=== PATIENT | female | born 1960 | race Caucasian/White ===

== ENCOUNTER 2017-06-16 15:43 | Emergency (ER) | payer MEDICARE ==
--- NOTE | 2017-06-16 16:11 | ERPHSYRPT ---
- History of Present Illness Time Seen by Provider: 06/16/17 16:09 Source: patient Exam Limitations: no limitations Patient Subjective Stated Complaint: pt states she was wearing platform shoes thursday when she tripped over a rock injuring her left foot. reports severe pain today with some swelling. Triage Nursing Assessment: pt is aox3, pupils perrl, resps easy and non labored , pedal pulses strong and equal bilat. brusing noted to the dorsal left foot, rom limited upon exam due to pain. sensation intact to bilat lower extrem. cap refill < 3 sec. pain with ambulation and weight bearing. Physician History: mild to mod positional ache pain of the left foot since trip and fall last Thursday, no bleeding, no other injury, pt refused pain med Allergies/Adverse Reactions: allopurinol Allergy (Verified 03/22/16 04:46) azithromycin [From Zithromax] Allergy (Verified 03/22/16 04:46) Sulfa (Sulfonamide Antibiotics) [Sulfa(Sulfonamide Antibiotics)] Allergy ( Verified 03/22/16 04:46) tuberculin, purified protein deriva [Tuberculin,Purif.Prot.Deriv.] Allergy ( Verified 03/22/16 04:46) Home Medications: Aspirin 81 mg PO HS 11/13/13 [History] Insulin Glargine,Hum.rec.anlog [Lantus] 30 unit SQ BID 11/13/13 [History] Hx Tetanus, Diphtheria Vaccination/Date Given: No Hx Influenza Vaccination/Date Given: No Hx Pneumococcal Vaccination/Date Given: No Immunizations Up to Date: Yes - Review of Systems Musculoskeletal: Fall, No Back Pain, No Neck Pain Skin: No Symptoms Neurological: No Dizziness - Past Medical History Pertinent Past Medical History: Yes Neurological History: Migraines, Peripheral Neuropathy ENT History: No Pertinent History Cardiac History: High Cholesterol, Hypertension Respiratory History: No Pertinent History Endocrine Medical History: Diabetes Type II Musculoskeletal History: Degenerative Disk Disease GI Medical History: GERD, Polyps History: Other Psycho-Social History: Bipolar, Depression Female Reproductive Disorders: Cervical Cancer, Fibroids, Ovarian Cancer Other Medical History: PT HAS INSULIN PUMP. ALSO WITH INTERNAL BLOOD SUGAR CHECKING DEVICE. - Past Surgical History Past Surgical History: Yes Neuro Surgical History: No Pertinent History Cardiac: Cardiac Catheterization Respiratory: No Pertinent History Gastrointestinal: Cholecystectomy Genitourinary: No Pertinent History Musculoskeletal: Orthopedic Surgery Female Surgical History: Hysterectomy Other Surgical History: intestinal prolapse x 2. tonsillectomy. 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 carpel tunnel repair. bariatric surgery september 2016 - Social History Smoking Status: Never smoker Exposure to second hand smoke: No Drug Use: none Patient Lives Alone: Yes - Female History Hx Last Menstrual Period: 1984 Hx Now: No - Nursing Vital Signs Nursing Vital Signs: Initial Vital Signs Temperature 97.8 F 06/16/17 15:48 Pulse Rate 89 06/16/17 15:48 Respiratory Rate 18 06/16/17 15:48 Blood Pressure 168/107 06/16/17 15:48 O2 Sat by Pulse Oximetry 95 06/16/17 15:48 Pain Scale Pain Intensity 5 - Physical Exam General Appearance: no apparent distress Extremity Exam: other (tender dorsal forefoot on left, kathleen, sen and pulses intact, nontender ankle and knee) Neurologic Exam: alert, oriented x 3 Skin Exam: warm, dry SpO2 Interpretation: normal SpO2: 95 Oxygen Delivery: Room Air - Course Nursing assessment & vital signs reviewed: Yes - Radiology Exams Foot X-ray Interpretation: Discussed w/ radiologist, No Fracture Ordered Tests: Active Orders 24 hr Category Date Time Status FOOT (MINIMUM 3 VIEWS) Stat Exams 06/16/17 16:08 Completed - Progress Progress: unchanged Discussed with : Clemencia Dooley Will see patient in: office Counseled pt/family regarding: diagnosis, need for follow-up, rad results - Departure Time of Disposition: 17:11 Departure Disposition: Home Clinical Impression: Contusion Qualifiers: Encounter type: initial encounter Contusion area: foot Laterality: left Qualified Code(s): S90.32XA - Contusion of left foot, initial encounter Condition: Stable Critical Care Time: No Referrals: SISI DOOLEY [Primary Care Provider] - Instructions: Foot Pain Additional Instructions: ice and elevation and motrin see your doctor, return if worse
--- NOTE | 2017-06-16 16:30 | XRAY ---
Indication: Third and fourth toe pain following injury. Comparison: March 06, 2009. 3 nonweightbearing views of the left foot demonstrates healed fifth metatarsal shaft fracture with stable tiny spurring of the distal tibia and posterior/plantar calcaneus. No other bony, articular, or soft tissue abnormalities.
[2017-06-16 17:00] VITALS: BP 145/109; PULSE 80
[2017-06-16 17:13] VITALS: O2SAT 95
== END 2017-06-16 17:24 | disposition home or self-care (01) ==
LOC: ED 15:43
DX: S90.32XA Contusion of left foot, initial encounter (principal); W01.0XXA Fall on same level from slipping, tripping and stumbling without subsequent striking against object, initial encounter; E11.9 Type 2 diabetes mellitus without complications; I10 Essential (primary) hypertension; E78.00 Pure hypercholesterolemia, unspecified; Z79.4 Long term (current) use of insulin
CPT/HCPCS: 73630; 99283